=== PATIENT | female | born 1980 | race Caucasian/White ===

== ENCOUNTER 2019-04-02 14:39 | Emergency (ER) | payer OTHER ==
[2019-04-02 14:57] VITALS: BP 111/72; PULSE 94; RESP 18; TEMP 98.5
[2019-04-02] MEDS ORDERED: TOBRAMYCIN 0.3% OPHTH OINT 3.5 GM TUBE BOTH EYES STA (15:05)
[2019-04-02] MEDS ORDERED: PROPARACAINE 0.5% OPHTH DROPS 15 ML BTL BOTH EYES STA (15:05)
--- NOTE | 2019-04-02 15:34 | ED ---
Eye Problem HPI - General Chief complaint: Eye Problems Stated complaint: Eye pain Time Seen by Provider: 04/02/19 15:05 Source: patient, RN notes reviewed, old records reviewed Mode of arrival: ambulatory Limitations: no limitations - History of Present Illness Initial comments: This is a 38-year-old female the ER for evaluation. Patient resents with right eye pain and redness, patient does admit to drainage from right eye, patient wears contacts. Patient was recontacted for maybe a little too long, she's had some work throughout the day pain, change in vision. Denies any other trauma no recent fevers. No significant swelling of face or eye. Patient denies headache. She does have a little clear drainage from that right eye and admits to red right eye, some burning and irritation. Provisional complaint of itching of right eye, patient denies history of ALLERGIC eye issues MD chief complaint: eye pain, eye redness -: hour(s) Onset Description: gradual Location: right eye Place: home If Injury: none Eye Symptoms: burning, redness, blurry vision Severity: mild Severity scale (1-10): 2 If Pain, Quality: burning Consistency: intermittent Context: contact lens use Associated Symptoms: none Treatments Prior to Arrival: none - Related Data Home Medications Medication Instructions Recorded Confirmed No Known Home Medications 04/02/19 04/02/19 Allergies Allergy/AdvReac Type Severity Reaction Status Date / Time sulfamethoxazole Allergy Swelling Verified 04/02/19 16:03 [From Bactrim] trimethoprim [From Bactrim] Allergy Swelling Verified 04/02/19 16:03 Review of Systems ROS Statement: Those systems with pertinent positive or pertinent negative responses have been documented in the HPI. ROS Other: All systems not noted in ROS Statement are negative. Past Medical History Past Medical History: No Reported History History of Any Multi-Drug Resistant Organisms: None Reported Past Surgical History: No Surgical Hx Reported Past Psychological History: No Psychological Hx Reported Smoking Status: Never smoker Past Alcohol Use History: Occasional Past Drug Use History: None Reported General Exam - General Exam Comments Initial Comments: Right eye burning and irritation, clear drainage Right eye as for the exam and was lamp exam with no abrasion noted Limitations: no limitations General appearance: alert, in no apparent distress Head exam: Present: atraumatic, normocephalic, normal inspection Eye exam: Present: normal appearance, PERRL, EOMI. Absent: scleral icterus, conjunctival injection, nystagmus, periorbital swelling, periorbital tenderness Pupils: Present: normal accommodation ENT exam: Present: normal exam, mucous membranes moist Neck exam: Present: normal inspection. Absent: tenderness, meningismus, lymphadenopathy Respiratory exam: Present: normal lung sounds bilaterally. Absent: respiratory distress, wheezes, rales, rhonchi, stridor Cardiovascular Exam: Present: regular rate, normal rhythm, normal heart sounds. Absent: systolic murmur, diastolic murmur, rubs, gallop, clicks GI/Abdominal exam: Present: soft, normal bowel sounds. Absent: distended, tenderness, guarding, rebound, rigid Extremities exam: Present: normal inspection, full ROM, normal capillary refill. Absent: tenderness, pedal edema, joint swelling, calf tenderness Back exam: Present: normal inspection Neurological exam: Present: alert, oriented X3, CN II-XII intact Psychiatric exam: Present: normal affect, normal mood Skin exam: Present: warm, dry, intact, normal color. Absent: rash Course Vital Signs 04/02/19 14:54 Temperature 98.5 F Pulse Rate 94 Respiratory 18 Rate Blood Pressure 111/72 O2 Sat by Pulse 100 Oximetry Medical Decision Making - Medical Decision Making 38 female the ER for evaluation of right eye drainage, redness and erythema. No trauma noted. Patient has good vision. Patient given drops and can be discharged home encouraged to not wear contacts for 1 week Disposition Clinical Impression: Viral conjunctivitis, Bacterial conjunctivitis Disposition: HOME SELF-CARE Condition: Good Instructions (If sedation given, give patient instructions): Conjunctivitis (ED) Is patient prescribed a controlled substance at d/c from ED?: No Referrals: Kt Lopez MD [STAFF PHYSICIAN] - 1-2 days
[2019-04-02] MEDS ORDERED: TOBRAMYCIN 0.3% OPHTH DROPS 5 ML BTL BOTH EYES STA (16:10)
== END 2019-04-02 16:27 | disposition home or self-care (01) ==
LOC: EC 14:39
DX: B30.9 Viral conjunctivitis, unspecified (principal); H10.89 Other conjunctivitis; Z88.2 Allergy status to sulfonamides
CPT/HCPCS: 99283

== ENCOUNTER → 2019-06-09 | Outpatient (CLI) | payer OTHER ==
--- NOTE | 2019-06-09 10:20 | US ---
EXAMINATION TYPE: US gallbladder DATE OF EXAM: 06/09/2019 COMPARISON: NONE CLINICAL HISTORY: R10.9 Abdominal pain. Epigastric pain, RUQ pain, nausea for 2 weeks EXAM MEASUREMENTS: Liver Length: 14.6 cm Gallbladder Wall: 0.2 cm CBD: 0.4 cm Right Kidney: 9.9 x 3.8 x 4.4 cm Technical limitations due to large amount of overlying bowel content Pancreas: visualized portions appear wnl Liver: appears wnl Gallbladder: no evidence of stones Evidence for sonographic Vega's sign: no CBD: appears wnl Right Kidney: no evidence of hydronephrosis or mass IMPRESSION: Unremarkable abdominal ultrasound. No sonographic evidence of cholelithiasis nor acute ch olecystitis.
== END | disposition home or self-care (01) ==
LOC: RADUSWWP 08:14
PROVIDERS: ATTEND Family Medicine
DX: R10.11 Right upper quadrant pain (principal); Z88.1 Allergy status to other antibiotic agents
CPT/HCPCS: 76705